=== PATIENT | female | born 1990 ===

== ENCOUNTER 2017-09-04 11:09 | Emergency (ER) | payer MEDICAID ==
[2017-09-04 11:11] VITALS: O2SAT 100
[2017-09-04 11:12] VITALS: BMI 25.7
[2017-09-04] MEDS ORDERED: Sodium Chloride 0.9% 1,000 ML IV STA (11:39)
--- NOTE | 2017-09-04 11:43 | ED PDOC ---
Syncope/Near Syncope/Dizziness Time Seen by Provider: 09/04/17 11:16 Chief Complaint (Nursing): Dizziness/Lightheaded Chief Complaint (Provider): Near Syncope History Per: Patient Additional History Per: Patient Additional Complaint(s): 27 yo female, no PMH, presents to ED with c/o acute onset of feeling dizzy, nauseous and sweaty while waiting for bus to work this morning. Pt reports episodes lasted ~ 10 minutes and resolved after she walked home and sat down. Pt does admit to eating this am. Pt currently 11 weeks , . Pt had C section and still born with first due to placental abruptea Pt is being followed by high risk team in [place] Past Medical History Reviewed: Nursing Documentation, Vital Signs Vital Signs: Last Vital Signs Temp 98 F 09/04/17 11:10 Pulse 57 L 09/04/17 11:10 Resp BP 112/76 09/04/17 11:10 Pulse Ox 100 09/04/17 11:10 - Medical History PMH: No Chronic Diseases - Surgical History Surgical History: No Surg Hx - Family History Family History: States: No Known Family Hx - Living Arrangements Living Arrangements: With Family - Social History Current smoker - smoking cessation education provided: No Alcohol: None Drugs: Denies - Allergies Allergies/Adverse Reactions: Allergies Allergy/AdvReac Type Severity Reaction Status Date / Time No Known Allergies Allergy Verified 09/04/17 11:12 - Laboratory Results Result Diagrams: 09/04/17 11:50 09/04/17 11:50 - ECG O2 Sat by Pulse Oximetry: 100 Medical Decision Making Medical Decision Making: EKG: SB at 55 bpm, no axis deviation or acute ST changes, as read by ED MD Finger stick: 95 Orthostatics: lay: 97/48 HR: 60 Sit: 104/62 HR: 77 Stand: 99/66 hr:94 Blood type: A+ Hgb:12.0 COMP WNL US pending Case endorsed to ZAINAB Matamoros at 1500 pending diagntoic review and re-eval Disposition - Clinical Impression Clinical Impression: Near syncope, Dizzy spells - Patient ED Disposition Is Patient to be Admitted: Transfer of Care - Disposition Disposition: Transfer of Care Disposition Time: 14:34 Condition: STABLE Forms: JAZIO (Irish)
[2017-09-04 11:55] LABS: BASO % 0.3 % (0.0-2.0); EOS # 0.1 K/uL (0.0-0.7); EOS % 1.4 % (0.0-4.0); LYMPH # 1.8 K/uL (1.0-4.3); MEAN CELL VOLUME 85.3 fl (81.0-99.0); MEAN CORPUSCULAR HEMOGLOBIN 30.3 pg (27.0-31.0); MEAN CORPUSCULAR HGB CONC 35.5 g/dL (33.0-37.0); MONO # 0.7 K/uL (0.0-0.8); MONO % 9.1 % (0.0-10.0); NEUT # 4.8 K/uL (1.8-7.0); NEUT % 65.2 % (50.0-75.0); NRBC % 0.1 % (0.0-0.0); RBC 3.96 Mil/uL (3.80-5.20); RED CELL DISTRIBUTION WIDTH 12.8 % (11.5-14.5); WHITE BLOOD COUNT 7.3 K/uL (4.8-10.8)
[2017-09-04 12:10] LABS: ALB/GLOB RATIO 1.2 (1.0-2.1); ALBUMIN 3.8 g/dL (3.5-5.0); ALT/SGPT 17 U/L (9-52); AST/SGOT 23 U/L (14-36); BLOOD UREA NITROGEN 9 mg/dl (7-17); CALCIUM 9.1 mg/dL (8.4-10.2); GFR AFRICAN-AMERICAN > 60; GFR NON-AFRICAN AMERICAN > 60
[2017-09-04 13:38] LABS: SQUAMOUS EPITHIAL 2 /hpf (0-5); URINE BACTERIA RARE (<OCC); URINE BILIRUBIN NEGATIVE (NEGATIVE); URINE BLOOD SMALL (NEGATIVE); URINE CLARITY SLIGHTY-CLOUDY (Clear); URINE COLOR YELLOW (YELLOW); URINE GLUCOSE (UA) NEG (Normal); URINE LEUKOCYTE ESTERASE NEG Leu/uL (Negative); URINE PROTEIN NEGATIVE (NEGATIVE); URINE UROBILINOGEN 0.2-1.0 mg/dL (0.2-1.0)
--- NOTE | 2017-09-04 15:18 | ED PDOC ---
- Laboratory Results Result Diagrams: 09/04/17 11:50 09/04/17 11:50 - ECG O2 Sat by Pulse Oximetry: 100 Medical Decision Making Medical Decision Making: Case endorsed to communications writer from ZAINAB Cali at 1500 pending diagnostic review and re-eval US resulted: IMPRESSION: Single live intrauterine gestation with mean gestational age of 12 weeks and 0 days. Estimated date of delivery by ultrasound is 03/19/2018. The ultrasound dates correspond with the clinical dates. Results discussed with Pt, demonstrates full understanding. Pt. well appearing , feels good, denies dizziness and is ambulating with steady gait. Disposition - Clinical Impression Clinical Impression: Near syncope, Dizzy spells - POA Present On Arrival: None - Disposition Disposition: Routine/Home Disposition Time: 15:36 Condition: IMPROVED Instructions: Near Fainting Forms: HUM ED School/Work Excuse
--- NOTE | 2017-09-04 15:23 | US ---
Date of service: 09/04/2017 PROCEDURE: OB Pelvic Ultrasound HISTORY: cramping, 11 weeks, fx of placental abruptea COMPARISON: None available. FINDINGS: UTERUS: Single Live intrauterine gestation. CRL measures 5.34 cm equivalent to 12 weeks and 0 day gestatioin Gestational sac diameter measures 5.75 cm equivalent to 11 weeks and 6 days gestation age (Ultrasound estimated): 12 weeks and 0 day Date of delivery (Ultrasound estimated) : 03/19/2018 Heart rate: 158 bpm. Ana-gestational hemorrhage: None. Uterus measures 16.1 x 10.0 x 8.5 cm. No mass CERVIX: Long and closed. No cervical abnormality seen. RIGHT OVARY: Measures 2.1 x 2.3 x 1.4 cm. No mass. Normal flow. LEFT OVARY: Measures 3.1 x 2.0 x 2.4 cm. No mass. Normal flow. There is a 2.2 x 1.6 x 1.7 cm complicated presumable corpus luteum cyst. FREE FLUID: None. OTHER FINDINGS: None. IMPRESSION: Single live intrauterine gestation with mean gestational age of 12 weeks and 0 days. Estimated date of delivery by ultrasound is 03/19/2018. The ultrasound dates correspond with the clinical dates.
[2017-09-04 16:03] VITALS: RESP 16
[2017-09-04 16:05] VITALS: BP 106/68; PULSE 61; TEMP 98
--- NOTE | 2017-09-05 17:53 | CARD ---
APPROVED REPORT Date of service: 09/04/2017 EKG Measurement Heart [id number] <Conclusion> Sinus bradycardia Otherwise normal ECG
== END 2017-09-04 15:50 | disposition home or self-care (01) ==
LOC: H.ER 11:09
DX: R42 Dizziness and giddiness (principal); R55 Syncope and collapse; Z3A.12 12 weeks gestation of pregnancy
CPT/HCPCS: 76815; 76817; 80053; 81003; 81025; 82948; 84484; 84702; 85025; 86850; 86900; 93005; 99285; J7030

== ENCOUNTER 2017-11-29 09:20 | Emergency (ER) | payer MEDICAID ==
[2017-11-29 09:20] VITALS: BMI 25.7
[2017-11-29 15:42] VITALS: PULSE 66; RESP 16; TEMP 98.3; O2SAT 100
--- NOTE | 2017-11-29 15:49 | OBHP ---
Datetime: 11/29/2017 12:14 IP Adm Impression: , intrauterine ; No Active Labor; Intact Membranes IP Admit Plan: Observation/Evaluation Admit Comment, IP Provider: Pt is a 27yo 23.4wk with ARTIS of 03/24/17 based on reported LMP 06/21. Pt states that she started to feel lower back pain this morning and wanted to make sure the baby was ok. Pt is concerned due to having a previous 31wk baby due to placental abruption. Denies vagina l bleeding, LOF, or contractions. States she feels good movement. Denies headaches, blurry visi on, chest pain, SOB, nausea, vomiting, diarrhea, constipation, or dysuria. PNC: Dr. Malcolm Ayala PNL: pt reports unremarkable- no records OBHx: 1 C section done @ 31wks due to placental abruption [employer]: Denies STD's, Denies abnormal pap smear, Last sexually active a few days ago PMHx: None Meds: PNV Allergies: NKDA Family Hx: Mom-DM Social Hx: Denies smoking, alcohol, or drug use Surg hx: None Hosp: None PE: HEENT: NCAT, PERRLA CV: RRR, +S1,S2, no murmurs, rubs or gallops RESP: CTA, no wheezing, rales or rhonchi Abdomen: Soft, nontender, normal bowel sounds appreciated Back: Pain in mid and lower back noted, no radiation to legs or groin Extremities: No edema noted A/P Pt is a 27yo 23.4 wk here for maternal discomfort, back pain -Pt monitored and observed in [facility] - heart rate monitored - bedside U/S performed- transverse lie, cardiac activity observed -D/C home with ED protocol -Pain control with Tylenol Case reveiwed and discussed with Dr. Uday Rowan PGY-1 Pelvic Type - PN: Adequate Extremities - PN: Normal Abdomen - PN: Normal Back - PN: Normal Breast - PN: Not Done Lungs - PN: Normal Heart - PN: Normal Thyroid - PN: Not Done Neurologic - PN: Normal HEENT - PN: Normal General - PN: Normal Membranes, Provider: Intact Contraction Comments Provider: None Gestation - Est Wks by US: 23.4 Pool Provider: Negative IP Hx Assessment: The History has been Reviewed and is Current EGA AdmitDate IP: 23.4 Vital Signs Provider: Reviewed; Within Normal Limits IP Chief Complaint: Maternal discomfort; evaluation Dilatation, Provider: 0 Effacement, Provider: 0 Station, Provider: 0 Genitourinary Exam: Normal DTRs - PN: Normal
== END 2017-11-29 10:57 | disposition home or self-care (01) ==
LOC: H.EDERROR 09:20 → H.EROB2 09:20 → H.EDERROR 10:09 → H.L&D 10:09 → H.EROB2 10:10
DX: O26.92 Pregnancy related conditions, unspecified, second trimester (principal); M54.5 Low back pain; O09.92 Supervision of high risk pregnancy, unspecified, second trimester; Z3A.23 23 weeks gestation of pregnancy